=== PATIENT | male | born 1950 | race Two or more races ===

== ENCOUNTER 2017-01-05 16:30 | Inpatient (IN) | payer MEDICARE, MEDICAID ==
[~2017-01-05] VITALS: Ht 167.6 cm; Wt 66.7 kg
[~2017-01-05 16:30] MED LIST: ESCI10TA PO; GLIM4TAB2 PO; LEVODOPA; METF500T4 PO; PREG75CA PO; RISP1 PO; VALS160T2 PO
[2017-01-05] MEDS ORDERED: ONDANSETRON HCL 4MG/2ML VIAL IV PRN (17:30)
[2017-01-05] MEDS ORDERED: DIPHENHYDRAMINE 25MG CAPSULE PO PRN (17:30)
[2017-01-05] MEDS ORDERED: IPRATROPIUM/ALBUTEROL 0.5-3(2.5)MG/3ML NEB HHN PRN (17:30)
[2017-01-05] MEDS ORDERED: MAGNESIUM/ALUMINUM HYDROXIDE/SIMETHICONE 30ML UDC PO PRN (17:30)
[2017-01-05] MEDS ORDERED: NA PHOS,M-B/NA PHOS,DI-BA ENEMA 118ML PR PRN ×2 (17:30→17:45)
[2017-01-05] MEDS ORDERED: LORAZEPAM 0.5MG TABLET PO PRN (17:30)
[2017-01-05] MEDS ORDERED: HYDROCODONE/ACETAMINOPHEN 5/325MG TABLET PO PRN (17:30)
[2017-01-05] MEDS ORDERED: DOCUSATE SODIUM 100MG CAPSULE PO PRN (17:30)
[2017-01-05] MEDS ORDERED: DEXTROSE 50% WATER 50ML SYRINGE IV PRN ×2 (17:30)
[2017-01-05] MEDS ORDERED: LACTULOSE 20G/30ML UDC PO PRN (17:45)
[2017-01-05 20:00] VITALS: BP 169/81
[2017-01-05] MEDS: INSULIN LISPRO 100 UNITS/ML SUBCUT SCH (21:00)
[2017-01-05] MEDS: CLONIDINE 0.1MG TABLET PO PRN (21:20)
[2017-01-05] MEDS: CARBIDOPA/LEVODOPA 25/100MG TABLET CR PO SCH (21:20)
[2017-01-05] MEDS: MIRTAZAPINE 15MG TABLET PO SCH (21:20)
[2017-01-05] MEDS: BLOOD SUGAR DIAGNOSTIC STRIP TEST SCH (21:27)
[2017-01-06] MEDS: ACETAMINOPHEN 325MG TABLET PO PRN (05:12)
[2017-01-06] MEDS: CLONIDINE 0.1MG TABLET PO PRN ×2 (05:13→20:10)
[2017-01-06] MEDS: INSULIN LISPRO 100 UNITS/ML SUBCUT SCH ×4 (06:28→20:10)
[2017-01-06] MEDS: BLOOD SUGAR DIAGNOSTIC STRIP TEST SCH ×4 (06:28→20:10)
[2017-01-06 07:44] VITALS: BP 162/78
[2017-01-06] MEDS: DOCUSATE SODIUM 100MG CAPSULE PO SCH ×2 (08:49→16:54)
[2017-01-06] MEDS: ASPIRIN 81MG TABLET PO SCH (08:49)
[2017-01-06] MEDS: GLIMEPIRIDE 4MG TABLET PO SCH (08:49)
[2017-01-06] MEDS: CARBIDOPA/LEVODOPA 25/100MG TABLET CR PO SCH ×3 (08:49→16:54)
[2017-01-06] MEDS: METFORMIN HCL 500MG TABLET PO SCH (08:49)
[2017-01-06] MEDS: PREGABALIN 75MG CAPSULE PO SCH (08:49)
[2017-01-06] MEDS: ENOXAPARIN 40MG/0.4ML SYR SUBCUT SCH (08:50)
[2017-01-06 20:00] VITALS: BP 178/84
[2017-01-06] MEDS ORDERED: LIDOCAINE HCL 20 MG/ML 100ML BOTTLE MM PRN (20:00)
[2017-01-06] MEDS: MIRTAZAPINE 15MG TABLET PO SCH (20:10)
[2017-01-06 21:20] VITALS: BP 140/69
[2017-01-07] MEDS: BLOOD SUGAR DIAGNOSTIC STRIP TEST SCH ×4 (06:09→21:00)
[2017-01-07] MEDS: INSULIN LISPRO 100 UNITS/ML SUBCUT SCH ×4 (07:18→21:00)
[2017-01-07 08:00] VITALS: BP 148/68
[2017-01-07] MEDS: GLIMEPIRIDE 4MG TABLET PO SCH (08:55)
[2017-01-07] MEDS: CARBIDOPA/LEVODOPA 25/100MG TABLET CR PO SCH ×3 (08:55→16:58)
[2017-01-07] MEDS: PREGABALIN 75MG CAPSULE PO SCH (08:55)
[2017-01-07] MEDS: ASPIRIN 81MG TABLET PO SCH (08:55)
[2017-01-07] MEDS: METFORMIN HCL 500MG TABLET PO SCH (08:55)
[2017-01-07] MEDS: DOCUSATE SODIUM 100MG CAPSULE PO SCH ×2 (08:55→16:35)
[2017-01-07] MEDS: ENOXAPARIN 40MG/0.4ML SYR SUBCUT SCH (08:56)
[2017-01-07 20:00] VITALS: BP 163/75
[2017-01-07] MEDS: MIRTAZAPINE 15MG TABLET PO SCH (21:40)
[2017-01-07] MEDS: CLONIDINE 0.1MG TABLET PO PRN (21:41)
[2017-01-07 22:41] VITALS: BP 132/72
[2017-01-08] MEDS: INSULIN LISPRO 100 UNITS/ML SUBCUT SCH ×4 (06:21→20:39)
[2017-01-08] MEDS: BLOOD SUGAR DIAGNOSTIC STRIP TEST SCH ×4 (06:21→20:39)
[2017-01-08 08:00] VITALS: BP 155/68
[2017-01-08] MEDS: DOCUSATE SODIUM 100MG CAPSULE PO SCH ×2 (09:06→17:09)
[2017-01-08] MEDS: ASPIRIN 81MG TABLET PO SCH (09:07)
[2017-01-08] MEDS: METFORMIN HCL 500MG TABLET PO SCH (09:07)
[2017-01-08] MEDS: PREGABALIN 75MG CAPSULE PO SCH (09:07)
[2017-01-08] MEDS: GLIMEPIRIDE 4MG TABLET PO SCH (09:07)
[2017-01-08] MEDS: ENOXAPARIN 40MG/0.4ML SYR SUBCUT SCH (09:08)
[2017-01-08] MEDS: CARBIDOPA/LEVODOPA 25/100MG TABLET CR PO SCH ×3 (09:14→17:09)
[2017-01-08 20:00] VITALS: BP 162/87
[2017-01-08] MEDS: CLONIDINE 0.1MG TABLET PO PRN (20:35)
[2017-01-08] MEDS: MIRTAZAPINE 15MG TABLET PO SCH (20:36)
[2017-01-08 21:58] VITALS: BP 155/73
[2017-01-09] MEDS: BLOOD SUGAR DIAGNOSTIC STRIP TEST SCH ×4 (06:21→20:27)
[2017-01-09] MEDS: INSULIN LISPRO 100 UNITS/ML SUBCUT SCH ×4 (06:27→20:27)
[2017-01-09 08:00] VITALS: BP 161/76
[2017-01-09] MEDS: ASPIRIN 81MG TABLET PO SCH (08:30)
[2017-01-09] MEDS: DOCUSATE SODIUM 100MG CAPSULE PO SCH ×2 (08:30→17:05)
[2017-01-09] MEDS: PREGABALIN 75MG CAPSULE PO SCH (08:31)
[2017-01-09] MEDS: METFORMIN HCL 500MG TABLET PO SCH (08:31)
[2017-01-09] MEDS: GLIMEPIRIDE 4MG TABLET PO SCH (08:31)
[2017-01-09] MEDS: CARBIDOPA/LEVODOPA 25/100MG TABLET CR PO SCH ×3 (08:31→17:05)
[2017-01-09] MEDS: ENOXAPARIN 40MG/0.4ML SYR SUBCUT SCH (08:31)
[2017-01-09 20:16] VITALS: BP 190/75
[2017-01-09] MEDS: CLONIDINE 0.1MG TABLET PO PRN (20:27)
[2017-01-09] MEDS: MIRTAZAPINE 15MG TABLET PO SCH (20:27)
[2017-01-09 21:30] VITALS: BP 159/69
[2017-01-10] MEDS: INSULIN LISPRO 100 UNITS/ML SUBCUT SCH ×4 (06:40→21:00)
[2017-01-10] MEDS: BLOOD SUGAR DIAGNOSTIC STRIP TEST SCH ×4 (07:00→21:09)
[2017-01-10 07:51] VITALS: BP 194/83
[2017-01-10] MEDS: CLONIDINE 0.1MG TABLET PO PRN ×2 (07:55→20:23)
[2017-01-10] MEDS: CARBIDOPA/LEVODOPA 25/100MG TABLET CR PO SCH ×3 (08:00→17:15)
[2017-01-10] MEDS: GLIMEPIRIDE 4MG TABLET PO SCH (08:00)
[2017-01-10] MEDS: DOCUSATE SODIUM 100MG CAPSULE PO SCH ×2 (08:00→17:15)
[2017-01-10] MEDS: ENOXAPARIN 40MG/0.4ML SYR SUBCUT SCH (08:00)
[2017-01-10] MEDS: PREGABALIN 75MG CAPSULE PO SCH (08:01)
[2017-01-10] MEDS: METFORMIN HCL 500MG TABLET PO SCH (08:01)
[2017-01-10] MEDS: ASPIRIN 81MG TABLET PO SCH (08:01)
[2017-01-10 20:00] VITALS: BP 184/82
[2017-01-10] MEDS: MIRTAZAPINE 15MG TABLET PO SCH (20:23)
[2017-01-10 21:30] VITALS: BP 163/78
[2017-01-10 23:07] VITALS: BP 155/78
[2017-01-11] MEDS: BLOOD SUGAR DIAGNOSTIC STRIP TEST SCH ×4 (06:10→21:05)
[2017-01-11] MEDS: INSULIN LISPRO 100 UNITS/ML SUBCUT SCH ×4 (07:12→21:00)
[2017-01-11 08:00] VITALS: BP 139/70
[2017-01-11] MEDS: ASPIRIN 81MG TABLET PO SCH (09:09)
[2017-01-11] MEDS: ENOXAPARIN 40MG/0.4ML SYR SUBCUT SCH (09:09)
[2017-01-11] MEDS: METFORMIN HCL 500MG TABLET PO SCH (09:09)
[2017-01-11] MEDS: DOCUSATE SODIUM 100MG CAPSULE PO SCH ×2 (09:09→17:15)
[2017-01-11] MEDS: GLIMEPIRIDE 4MG TABLET PO SCH (09:10)
[2017-01-11] MEDS: CARBIDOPA/LEVODOPA 25/100MG TABLET CR PO SCH ×3 (09:10→17:15)
[2017-01-11] MEDS: PREGABALIN 75MG CAPSULE PO SCH (09:10)
[2017-01-11 20:00] VITALS: BP 185/83
[2017-01-11] MEDS: MIRTAZAPINE 15MG TABLET PO SCH (21:06)
[2017-01-11] MEDS: CLONIDINE 0.1MG TABLET PO PRN (21:07)
[2017-01-12] MEDS: BLOOD SUGAR DIAGNOSTIC STRIP TEST SCH ×4 (05:49→21:22)
[2017-01-12] MEDS: INSULIN LISPRO 100 UNITS/ML SUBCUT SCH ×4 (05:50→21:00)
[2017-01-12 07:52] LABS: HEMATOCRIT 30.6 % (42.0-52.0); HEMOGLOBIN 10.4 g/dL (14.0-18.0); MEAN CORPUSCULAR HEMOGLOBIN 30.2 pg (28.0-32.0); MEAN CORPUSCULAR VOLUME 88.8 fL (80.0-94.0); PLATELET 262 x1000/uL (130-400); RED BLOOD CELL COUNT 3.45 mill/uL (4.7-6.1); RED CELL DISTRIBUTION WIDTH 13.5 % (11.6-14.6); WHITE BLOOD COUNT 6.8 x1000/uL (4.5-11.0)
[2017-01-12 08:00] VITALS: BP 137/67
[2017-01-12 08:23] LABS: CALCIUM 8.9 mg/dL (8.5-10.1)
[2017-01-12] MEDS: METFORMIN HCL 500MG TABLET PO SCH (09:16)
[2017-01-12] MEDS: ENOXAPARIN 40MG/0.4ML SYR SUBCUT SCH (09:16)
[2017-01-12] MEDS: PREGABALIN 75MG CAPSULE PO SCH (09:16)
[2017-01-12] MEDS: GLIMEPIRIDE 4MG TABLET PO SCH (09:16)
[2017-01-12] MEDS: CARBIDOPA/LEVODOPA 25/100MG TABLET CR PO SCH ×3 (09:16→16:42)
[2017-01-12] MEDS: ASPIRIN 81MG TABLET PO SCH (09:16)
[2017-01-12] MEDS: ACETAMINOPHEN 325MG TABLET PO PRN (09:18)
[2017-01-12] MEDS: DOCUSATE SODIUM 100MG CAPSULE PO SCH ×2 (09:43→16:41)
[2017-01-12 20:00] VITALS: BP 151/65
[2017-01-12] MEDS: MIRTAZAPINE 15MG TABLET PO SCH (21:21)
[2017-01-13] MEDS: BLOOD SUGAR DIAGNOSTIC STRIP TEST SCH ×4 (06:30→20:25)
[2017-01-13] MEDS: INSULIN LISPRO 100 UNITS/ML SUBCUT SCH ×4 (07:31→20:26)
[2017-01-13 08:00] VITALS: BP 161/80
[2017-01-13] MEDS: PREGABALIN 75MG CAPSULE PO SCH (08:46)
[2017-01-13] MEDS: ENOXAPARIN 40MG/0.4ML SYR SUBCUT SCH (08:46)
[2017-01-13] MEDS: CARBIDOPA/LEVODOPA 25/100MG TABLET CR PO SCH ×3 (08:46→16:59)
[2017-01-13] MEDS: METFORMIN HCL 500MG TABLET PO SCH (08:46)
[2017-01-13] MEDS: ASPIRIN 81MG TABLET PO SCH (08:46)
[2017-01-13] MEDS: GLIMEPIRIDE 4MG TABLET PO SCH (08:46)
[2017-01-13] MEDS: ACETAMINOPHEN 325MG TABLET PO PRN (08:46)
[2017-01-13] MEDS: DOCUSATE SODIUM 100MG CAPSULE PO SCH ×2 (08:46→16:59)
[2017-01-13] MEDS: CLONIDINE 0.1MG TABLET PO PRN (20:25)
[2017-01-13] MEDS: MIRTAZAPINE 15MG TABLET PO SCH (20:25)
[2017-01-13 20:37] VITALS: BP 179/75
[2017-01-13 21:30] VITALS: BP 150/80
[2017-01-14] MEDS: BLOOD SUGAR DIAGNOSTIC STRIP TEST SCH ×4 (06:19→20:21)
[2017-01-14] MEDS: INSULIN LISPRO 100 UNITS/ML SUBCUT SCH ×4 (06:54→20:21)
[2017-01-14 08:00] VITALS: BP 180/74
[2017-01-14 09:30] VITALS: BP 118/68
[2017-01-14] MEDS: DOCUSATE SODIUM 100MG CAPSULE PO SCH ×2 (09:38→16:36)
[2017-01-14] MEDS: PREGABALIN 75MG CAPSULE PO SCH (09:38)
[2017-01-14] MEDS: GLIMEPIRIDE 4MG TABLET PO SCH (09:38)
[2017-01-14] MEDS: METFORMIN HCL 500MG TABLET PO SCH (09:38)
[2017-01-14] MEDS: CLONIDINE 0.1MG TABLET PO PRN ×2 (09:38→20:16)
[2017-01-14] MEDS: ASPIRIN 81MG TABLET PO SCH (09:38)
[2017-01-14] MEDS: CARBIDOPA/LEVODOPA 25/100MG TABLET CR PO SCH ×3 (09:38→16:36)
[2017-01-14] MEDS: ENOXAPARIN 40MG/0.4ML SYR SUBCUT SCH (09:39)
[2017-01-14 20:00] VITALS: BP 180/78
[2017-01-14] MEDS: MIRTAZAPINE 15MG TABLET PO SCH (20:16)
[2017-01-15] MEDS: INSULIN LISPRO 100 UNITS/ML SUBCUT SCH ×4 (06:14→21:20)
[2017-01-15] MEDS: BLOOD SUGAR DIAGNOSTIC STRIP TEST SCH ×4 (06:14→21:20)
[2017-01-15 08:00] VITALS: BP 163/69
[2017-01-15] MEDS: ASPIRIN 81MG TABLET PO SCH (09:11)
[2017-01-15] MEDS: METFORMIN HCL 500MG TABLET PO SCH (09:11)
[2017-01-15] MEDS: GLIMEPIRIDE 4MG TABLET PO SCH (09:11)
[2017-01-15] MEDS: DOCUSATE SODIUM 100MG CAPSULE PO SCH ×2 (09:11→16:55)
[2017-01-15] MEDS: ENOXAPARIN 40MG/0.4ML SYR SUBCUT SCH (09:12)
[2017-01-15] MEDS: PREGABALIN 75MG CAPSULE PO SCH (09:12)
[2017-01-15] MEDS: CARBIDOPA/LEVODOPA 25/100MG TABLET CR PO SCH ×3 (09:12→16:55)
[2017-01-15 20:00] VITALS: BP 157/74
[2017-01-15] MEDS: MIRTAZAPINE 15MG TABLET PO SCH (21:08)
[2017-01-16] MEDS: BLOOD SUGAR DIAGNOSTIC STRIP TEST SCH ×4 (06:30→21:00)
[2017-01-16 08:00] VITALS: BP 148/87
[2017-01-16] MEDS: DOCUSATE SODIUM 100MG CAPSULE PO SCH ×2 (08:53→17:07)
[2017-01-16] MEDS: ENOXAPARIN 40MG/0.4ML SYR SUBCUT SCH (08:54)
[2017-01-16] MEDS: METFORMIN HCL 500MG TABLET PO SCH (08:54)
[2017-01-16] MEDS: GLIMEPIRIDE 4MG TABLET PO SCH (08:54)
[2017-01-16] MEDS: ASPIRIN 81MG TABLET PO SCH (08:54)
[2017-01-16] MEDS: CARBIDOPA/LEVODOPA 25/100MG TABLET CR PO SCH ×3 (08:54→17:07)
[2017-01-16] MEDS: PREGABALIN 75MG CAPSULE PO SCH (08:54)
[2017-01-16] MEDS: INSULIN LISPRO 100 UNITS/ML SUBCUT SCH ×4 (08:55→21:00)
[2017-01-16 20:00] VITALS: BP 184/80
[2017-01-16] MEDS: MIRTAZAPINE 15MG TABLET PO SCH (22:03)
[2017-01-17] MEDS: BLOOD SUGAR DIAGNOSTIC STRIP TEST SCH ×2 (06:57→11:22)
[2017-01-17] MEDS: INSULIN LISPRO 100 UNITS/ML SUBCUT SCH ×2 (06:57→15:08)
[2017-01-17 08:00] VITALS: BP 162/74
[2017-01-17] MEDS ORDERED: BISACODYL 5MG TABLET PO PRN (09:30)
[2017-01-17] MEDS: PREGABALIN 75MG CAPSULE PO SCH (10:13)
[2017-01-17] MEDS: GLIMEPIRIDE 4MG TABLET PO SCH (10:13)
[2017-01-17] MEDS: METFORMIN HCL 500MG TABLET PO SCH (10:13)
[2017-01-17] MEDS: DOCUSATE SODIUM 100MG CAPSULE PO SCH (10:14)
[2017-01-17] MEDS: ENOXAPARIN 40MG/0.4ML SYR SUBCUT SCH (10:14)
[2017-01-17] MEDS: ASPIRIN 81MG TABLET PO SCH (10:14)
[2017-01-17] MEDS: CARBIDOPA/LEVODOPA 25/100MG TABLET CR PO SCH ×2 (10:14→15:06)
[2017-01-17 10:30] VITALS: BP 130/70
[2017-01-17 15:24] VITALS: BP 130/70
== END 2017-01-17 15:45 | disposition home health service (06) | DRG 56 ==
PROVIDERS: ADMIT Psychiatry & Neurology Neurology; ATTEND Internal Medicine
DX: G20 Parkinson's disease (principal); G93.40 Encephalopathy, unspecified; F33.1 Major depressive disorder, recurrent, moderate; E11.40 Type 2 diabetes mellitus with diabetic neuropathy, unspecified; F41.9 Anxiety disorder, unspecified; I10 Essential (primary) hypertension; R32 Unspecified urinary incontinence; R62.7 Adult failure to thrive; R41.843 Psychomotor deficit; G90.8 Other disorders of autonomic nervous system; F06.8 Other specified mental disorders due to known physiological condition
CPT/HCPCS: 36415; 80048; 82962; 85027; 92523; 97110; 97112; 97116; 97162; 97167; 97530; 97535; A6261; C1893; J1650; J1815; J7040

== ENCOUNTER 2022-05-18 06:50 | Emergency (ER) | payer OTHER, MEDICAID ==
[~2022-05-18] VITALS: Ht 172.7 cm; Wt 69.0 kg
[~2022-05-18 06:50] MED LIST changes: +CARB-32 PO; -ESCI10TA PO; -GLIM4TAB2 PO; +GLIM4TAB36 PO; -LEVODOPA; -METF500T4 PO; -PREG75CA PO; -RISP1 PO
[2022-05-18 07:50] LABS: BASOPHILS % 0.3 % (0.0-2.0); EOSINOPHILS % 3.8 % (0.0-5.0); HEMATOCRIT. 27.9 % (42.0-52.0); HEMOGLOBIN. 9.4 g/dL (14.0-18.0); LYMPHOCYTES % 14.4 % (20.0-50.0); MEAN CORPUSCULAR HEMOGLOBIN 30.6 pg (28.0-32.0); MEAN CORPUSCULAR VOLUME 90.5 fL (80.0-94.0); MEAN PLATELET VOLUME 7.1 fl (7.4-10.4); MONOCYTES % 5.6 % (2.0-8.0); NEUTROPHILS % 75.9 % (40.0-76.0); PLATELET 335 x1000/uL (130-400); RED BLOOD CELL COUNT 3.08 mill/uL (4.7-6.1); RED CELL DISTRIBUTION WIDTH 13.8 % (11.6-14.6)
[2022-05-18 07:56] LABS: CHLORIDE 98 mEq/L (98-107)
[2022-05-18 07:57] VITALS: BP 152/43
[2022-05-18 09:36] LABS: CLARITY URINE CLEAR (CLEAR); COLOR URINE YELLOW (YELLOW); KETONES URINE NEGATIVE (NEGATIVE); LEUKOCYTE ESTERASE URINE NEGATIVE (NEGATIVE); NITRITE URINE NEGATIVE (NEGATIVE); OCCULT BLOOD URINE NEGATIVE (NEGATIVE); PROTEIN URINE 3+ (NEGATIVE); SPECIFIC GRAVITY URINE 1.011 (1.005-1.030); UROBILINOGEN URINE 0.2 E.U./dL (0.2-1.0)
== END 2022-05-18 12:59 | disposition home or self-care (01) ==
LOC: ER 07:03 → CANBEDREQ 22:20
DX: N17.9 Acute kidney failure, unspecified (principal); D64.9 Anemia, unspecified; E11.649 Type 2 diabetes mellitus with hypoglycemia without coma; I11.0 Hypertensive heart disease with heart failure; I50.9 Heart failure, unspecified; Z98.890 Other specified postprocedural states; Z88.0 Allergy status to penicillin
CPT/HCPCS: 36415; 71045; 80053; 81003; 82962; 84484; 85025; 93005; 99285